=== PATIENT | female | born 1985 | race Caucasian/White ===

== ENCOUNTER 2018-08-03 13:16 | Day surgery (SDC) | payer BC ==
[~2018-08-03] VITALS: Ht 152.4 cm; Wt 64.3 kg
[2018-08-03 13:58] VITALS: Ht 152.4 cm; Wt 64.3 kg
[2018-08-03] MEDS ORDERED: LIOT5TAB3 PO (14:06)
[2018-08-03 14:45] VITALS: BP 149/88; PULSE 69; RESP 18
--- NOTE | 2018-08-03 14:57 | PREAC ---
Date/Time of Note Date/Time of Note DATE: 08/03/18 TIME: 14:56 Anesthesia Eval and Record Evaluation Time Pre-Procedure Interview DATE: 08/03/18 TIME: 14:56 Age 32 Sex female NPO: 8 hrs Preoperative diagnosis ABDOMINAL PAIN Planned procedure EGD Past Medical History Past Medical History: Includes Endo: Hypothyroid Hepatic: Hepatitis GI: Other (PANCRETITIS) Heme: Anemia Surgery & Anesthesia Issues No known issue Meds Anticoagulation: No Beta Kirsty within 24 hr: No Reason Beta Kirsty not given: Pt. not on B-Kirsty Reported Medications Liothyronine Sodium* (Cytomel*) 5 Mcg Tablet, 5 MCG PO DAILY, TAB 08/03/18 Meds reviewed: Yes Allergies Coded Allergies: acetaminophen (Verified Adverse Reaction, Intermediate, VOMITING, 01/20/14) codeine (Verified Adverse Reaction, Intermediate, VOMITING, 01/20/14) hydrocodone (Verified Adverse Reaction, Intermediate, VOMITING, 01/20/14) morphine (Verified Adverse Reaction, Intermediate, VOMITING, 01/20/14) Allergies Reviewed: Yes Labs/Studies Labs Reviewed: Reviewed by anesthesiologist test: Negative Pre-procedure Exam Last vitals Vital Signs Date Temp Pulse Resp B/P (MAP) Pulse Ox O2 O2 Flow FiO2 Time Delivery Rate 08/03/18 98.4 69 18 149/88 100 Room Air 14:45 (108) Airway: Adequate mouth opening, Adequate thyromental dist Mallampati: Mallampati II Teeth: Normal Lung: Normal Heart: Normal ASA Physical Status ASA physical status: 2 Emergency: None Planned Anesthetic General/MAC: MAC Planned Pain Management Parenteral pain med Pre-operative Attestations Prior to commencing anesthesia and surgery, the patient was re-evaluated, there was verification of: *The patient's identity *The results of appropriate recent lab work and preoperative vital signs *The above evaluation not changing prior to induction *Anesthetic plan, risk benefits, alternative and complications discussed with patient/family; questions answered; patient/family understands, accepts and wishes to proceed. LELE HARPER Aug 03, 2018 14:57
[2018-08-03] MEDS ORDERED: LIDOCAINE 2% (SDV) 5 ML INJ ONE (14:58)
[2018-08-03] MEDS ORDERED: PROPOFOL 40 ML ONE (14:58)
[2018-08-03] MEDS ORDERED: LABETALOL HCL 20MG INJ IV PRN (15:00)
[2018-08-03] MEDS ORDERED: EPHEDrine SULFATE 50 MG/5 ML SYG IV PRN (15:00)
[2018-08-03] MEDS ORDERED: ONDANSETRON 4 MG INJ IV PRN (15:00)
[2018-08-03] MEDS ORDERED: hydrALAzine 20 MG INJ IV PRN (15:00)
[2018-08-03] MEDS ORDERED: FENTAnyl 50 MCG/ML VIAL IV PRN (15:00)
--- NOTE | 2018-08-03 15:07 | HPN ---
Date/Time of Note Date/Time of Note DATE: 08/03/18 TIME: 15:07 Interval H&P Admission Note Pt. seen H&P reviewed: No system changes KARL DUPONT Aug 03, 2018 15:07
--- NOTE | 2018-08-03 15:15 | PAC ---
Date/Time of Note Date/Time of Note DATE: 08/03/18 TIME: 15:15 Post-Anesthesia Notes Post-Anesthesia Note Last documented vital signs Vital Signs Date Temp Pulse Resp B/P (MAP) Pulse Ox O2 O2 Flow FiO2 Time Delivery Rate 08/03/18 98.4 69 18 149/88 100 Room Air 1515 (108) Activity: WNL Respiratory function: WNL Cardiovascular function: WNL Mental status: Baseline Pain reasonably controlled: Yes Hydration appropriate: Yes Nausea/Vomiting absent: Yes LELE HARPER Aug 03, 2018 15:15
[2018-08-03 16:06] VITALS: BP 144/93; PULSE 66; RESP 20
== END 2018-08-03 16:53 | disposition home or self-care (01) ==
LOC: GIL 13:16
PROVIDERS: ATTEND Internal Medicine Gastroenterology
DX: K44.9 Diaphragmatic hernia without obstruction or gangrene (principal); E03.9 Hypothyroidism, unspecified
CPT/HCPCS: 43239; 84703; 88305; 88312; Z7610

== ENCOUNTER 2018-10-22 10:22 | Emergency (ER) | payer BC ==
[~2018-10-22] VITALS: Ht 152.4 cm; Wt 61.0 kg
[~2018-10-22 10:22] MED LIST: LIOT5TAB3 PO
[2018-10-22 10:24] VITALS: BP 134/86; PULSE 82; RESP 19; Ht 152.4 cm; Wt 61.0 kg
[2018-10-22] MEDS ORDERED: AMOX1TAB10 PO (10:46)
[2018-10-22] MEDS ORDERED: GUAI5SYR2 PO (10:47)
--- NOTE | 2018-10-22 10:47 | ERD ---
ER Documentation Chief Complaint Chief Complaint bilat ear pain and muffled hearing x yesterday HPI 32-year-old female presents with upper respiratory type symptoms. She reports that she went to her primary care provider about a week ago whom she was prescribed Benadryl and Motrin for supportive care. Patient went back to her primary care provider about 2 days ago in which she received antibiotic Z-Julio Cesar and Diflucan for her persistent symptoms. Today she reports to the ED because the symptoms are still persistent and she now has pain in her bilateral ears and muffled hearing in her ears. She states that her ears sound very congested and it feels like "cotton in her ears". She states that she has taken the antibiotic appropriately and will run out today. She reports that she has not been around any sick people, and denies any recent travel. She denies any fevers or abdominal pain. ROS All systems reviewed and are negative except as per history of present illness. Medications Home Meds Active Scripts Guaifenesin-Dextromethorphan* (Robitussin* DM) 100MG/10MG/5ML Syrup, 10 ML PO Q6H PRN for COUGH for 7 Days, ML Prov:JENNA NOVA PA-C 10/22/18 Amoxicillin/Potassium Clav (Amox-Clav 875-125 mg Tablet) 875-125 mg Tab, 1 TAB PO BID for 7 Days, #14 TAB Prov:JENNA NOVA PA-C 10/22/18 Reported Medications Liothyronine Sodium* (Cytomel*) 5 Mcg Tablet, 5 MCG PO DAILY, TAB 08/03/18 Allergies Allergies: Coded Allergies: acetaminophen (Verified Adverse Reaction, Intermediate, VOMITING, 01/20/14) codeine (Verified Adverse Reaction, Intermediate, VOMITING, 01/20/14) hydrocodone (Verified Adverse Reaction, Intermediate, VOMITING, 01/20/14) morphine (Verified Adverse Reaction, Intermediate, VOMITING, 01/20/14) PMhx/Soc History of Surgery: Yes (APPENDECTOMY, LAPROSCOPY) Anesthesia Reaction: No Hx Neurological Disorder: No Hx Respiratory Disorders: Yes (HX OF BRONCHITIS) Hx Cardiac Disorders: No Hx Psychiatric Problems: No Hx Miscellaneous Medical Probl: No Hx Alcohol Use: No Hx Substance Use: No Hx Tobacco Use: No FmHx Family History: No diabetes Physical Exam Vitals Vital Signs Date Temp Pulse Resp B/P (MAP) Pulse Ox O2 O2 Flow FiO2 Time Delivery Rate 10/22/18 98.0 82 19 134/86 99 10:24 (102) Physical Exam Const: No acute distress Head: Atraumatic Eyes: Normal Conjunctiva ENT: Normal External Ears, Nose and Mouth. Ears: No pain on pressing on the tragus, non-erythematous ear canals, good cone of light, nonbulging and noninflamed tympanic membrane bilaterally Sinuses: Pain to the maxillary sinuses when leaning head down and forward, tenderness to the maxillary sinus Neck: Full range of motion. Resp: Clear to auscultation bilaterally Cardio: Regular rate and rhythm, Abd: Soft, non tender, non distended Skin: No petechiae or rashes Back: No midline or flank tenderness Ext: No cyanosis, or edema Neur: Awake and alert Psych: Normal Mood and Affect Procedures/MDM ED COURSE: The patient was stable throughout ED course. I kept the patient informed of laboratory and diagnostic imaging results throughout the ED course. MEDICATIONS GIVEN: [None.] MEDICAL DECISION MAKING: Patient is a 32-year-old female presenting with URI type symptoms and ear congestion bilaterally. Examined the patient it appears to be a sinus infection. Patient had extreme pain when leaning her head down and forward looking down at the ground. Patient had tenderness to the maxillary sinuses when pressed upon. This time I believe the patient's ear pain is coming from pressure buildup from her sinuses. At this time I do not think patient has otitis externa, otitis media, mastoiditis. I prescribed patient Augmentin and Robitussin and told patient to drink plenty fluids and rest. I advised patient to follow-up with her primary care provider the next 1 to 2 days and to return back here if symptoms persist or worsen. Vital signs were reviewed. Patient is afebrile. Patient was not hypoxic. Patient was hemodynamically stable. PRESCRIPTION: Augmentin, Robitussin DISCHARGE: At this time, patient is stable for discharge and outpatient management. I have instructed the patient to follow-up with his/her primary care physician in 1-2 days. I have discussed with the patient the possibility of needing to see a specialist for further workup and imaging studies if symptoms persist. I have instructed the patient to promptly return to the ER for any new or worsening symptoms including increased pain, fever, nausea, vomiting, weakness or LOC. The patient and/or family expressed understanding of and agreement with this plan. All questions were answered. Home care instructions were provided. Disclaimer: Inadvertent spelling and grammatical errors are likely due to EHR/dictation software use and do not reflect on the overall quality of patient care. Also, please note that the electronic time recorded on this note does not necessarily reflect the actual time of the patient encounter. Departure Diagnosis: Primary Impression: Sinusitis Sinusitis location: maxillary Chronicity: unspecified Qualified Codes: J32.0 - Chronic maxillary sinusitis Additional Impression: Ear pressure Laterality: bilateral Qualified Codes: H93.8X3 - Other specified disorders of ear, bilateral Condition: Fair Patient Instructions: Sinusitis, Abx Tx Referrals: [facility] YOU HAVE RECEIVED A MEDICAL SCREENING EXAM AND THE RESULTS INDICATE THAT YOU DO NOT HAVE A CONDITION THAT REQUIRES URGENT TREATMENT IN THE EMERGENCY DEPARTMENT. FURTHER EVALUATION AND TREATMENT OF YOUR CONDITION CAN WAIT UNTIL YOU ARE SEEN IN YOUR DOCTORS OFFICE WITHIN THE NEXT 1-2 DAYS. IT IS YOUR RESPONSIBILITY TO MAKE AN APPOINTMENT FOR FOLOW-UP CARE. IF YOU HAVE A PRIMARY DOCTOR --you should call your primary doctor and schedule an appointment IF YOU DO NOT HAVE A PRIMARY DOCTOR YOU CAN CALL OUR PHYSICIAN REFERRAL HOTLINE AT IF YOU CAN NOT AFFORD TO SEE A PHYSICIAN YOU CAN CHOSE FROM THE FOLLOWING [facility] [address] [facility]. [facility] [address] [facility] [address] [facility] [facility] [address] [facility] [address] [facility]. [facility]. [address] [facility]. [facility] YOU HAVE RECEIVED A MEDICAL SCREENING EXAM AND THE RESULTS INDICATE THAT YOU DO NOT HAVE A CONDITION THAT REQUIRES URGENT TREATMENT IN THE EMERGENCY DEPARTMENT. FURTHER EVALUATION AND TREATMENT OF YOUR CONDITION CAN WAIT UNTIL YOU ARE SEEN IN YOUR DOCTORS OFFICE WITHIN THE NEXT 1-2 DAYS. IT IS YOUR RESPONSIBILITY TO MAKE AN APPOINTMENT FOR FOLOW-UP CARE. IF YOU HAVE A PRIMARY DOCTOR --you should call your primary doctor and schedule and appointment IF YOU DO NOT HAVE A PRIMARY DOCTOR YOU CAN CALL OUR PHYSICIAN REFERRAL HOTLINE AT . IF YOU CAN NOT AFFORD TO SEE A PHYSICIAN YOU CAN CHOSE FROM THE FOLLOWING [facility] INSTITUTIONS: [facility] [address] [place] [address] [facility] [address] [place] [address] [facility] [address] [place] [address] Additional Instructions: Call your primary care doctor TOMORROW for an appointment during the next 1-2 days.See the doctor sooner or return here if your condition worsens before your appointment time. JENNA NOVA PA-C Oct 22, 2018 10:47
== END 2018-10-22 11:37 | disposition home or self-care (01) ==
LOC: FTE 10:22
DX: J32.0 Chronic maxillary sinusitis (principal); H93.8X3 Other specified disorders of ear, bilateral
CPT/HCPCS: 99283